=== PATIENT | female | born 1965 | race Two or more races ===

== ENCOUNTER 2020-06-26 13:09 | Emergency (ER) | payer MEDICAID, MEDICARE ==
[~2020-06-26] VITALS: Ht 175.3 cm; Wt 101.4 kg
[~2020-06-26 13:09] MED LIST: NO HOME MEDS
[2020-06-26 13:26] VITALS: BP 111/73
[2020-06-26] MEDS ORDERED: PERM60CR19 TOP (14:34)
== END 2020-06-26 14:48 | disposition home or self-care (01) ==
LOC: ER 13:09
DX: B86 Scabies (principal); R21 Rash and other nonspecific skin eruption; E78.00 Pure hypercholesterolemia, unspecified; G89.29 Other chronic pain; F41.9 Anxiety disorder, unspecified; F32.9 Major depressive disorder, single episode, unspecified; F15.90 Other stimulant use, unspecified, uncomplicated; Z98.890 Other specified postprocedural states; Z72.89 Other problems related to lifestyle; Z88.6 Allergy status to analgesic agent; Z88.8 Allergy status to other drugs, medicaments and biological substances; Z79.899 Other long term (current) drug therapy
CPT/HCPCS: 99283